=== PATIENT | male | born 1935 | race Caucasian/White ===

== ENCOUNTER 2022-12-04 09:15 | Inpatient (IN) | payer OTHER ==
[~2022-12-04] VITALS: Ht 182.9 cm; Wt 76.2 kg
[2022-12-04] MEDS ORDERED: COZAAR100 MG PO (11:24)
[2022-12-06] MEDS ORDERED: FINASTERIDE5 MG (09:35)
[2022-12-06] MEDS ORDERED: ALLOPURINOL100 MG (09:35)
[2022-12-06] MEDS ORDERED: LOSARTAN POTAS100 MG (09:35)
== END 2022-12-20 15:14 | disposition home or self-care (01) | DRG 657 ==
LOC: O/R 12-06 05:16 → SURH 12-06 07:00
PROVIDERS: ADMIT Urology; ATTEND Urology
PROC: 0TB10ZZ Excision of Left Kidney, Open Approach (ICD-10-PCS; principal; 2022-12-06 07:00)
PROC: BW21ZZZ Computerized Tomography (CT Scan) of Abdomen and Pelvis (ICD-10-PCS; 2022-12-07)
PROC: 3E0F7GC Introduction of Other Therapeutic Substance into Respiratory Tract, Via Natural or Artificial Opening (ICD-10-PCS; 2022-12-07)
PROC: B246ZZZ Ultrasonography of Right and Left Heart (ICD-10-PCS; 2022-12-11)
PROC: BB24ZZZ Computerized Tomography (CT Scan) of Bilateral Lungs (ICD-10-PCS; 2022-12-19)
PROC: B54NZZZ Ultrasonography of Left Upper Extremity Veins (ICD-10-PCS; 2022-12-19)
DX: C64.2 Malignant neoplasm of left kidney, except renal pelvis (principal); I13.0 Hypertensive heart and chronic kidney disease with heart failure and stage 1 through stage 4 chronic kidney disease, or unspecified chronic kidney disease; I50.1 Left ventricular failure, unspecified; N17.8 Other acute kidney failure; R09.02 Hypoxemia; Z20.822 Contact with and (suspected) exposure to COVID-19